=== PATIENT | female | born 1960 | race Hispanic/Latino ===

== ENCOUNTER → 2017-07-21 | Outpatient (CLI) | payer BC ==
--- NOTE | 2017-07-21 17:42 | Diagnostic Imaging Report ---
EXAM: Transabdominal Pelvic Ultrasound INDICATION: \S\PELVIC AND PERINEAL PAIN COMPARISON: None TECHNIQUE: Grayscale transverse and sagittal transabdominal images were obtained of the pelvis. CLINICAL HISTORY: 57 year old A0; last menstrual period: 10 years ago. FINDINGS: Uterus Orientation: Normal Size: 6.5 x 4.3 x 5.4 cm, Normal Mass: None Endometrium: Not visualized. Right ovary: Not visualized. Left ovary: Not visualized. Adnexa: Normal Cul-de-sac: No free fluid IMPRESSION: Limited transabdominal pelvic ultrasound. Uterus is grossly unremarkable. Ovaries are not visualized, limiting evaluation. Signed by: Dr. Ortega Perkins MD on 07/21/2017 5:38 PM
== END ==
LOC: MAMMO 15:19
PROVIDERS: ATTEND Obstetrics & Gynecology
DX: Z12.31 Encounter for screening mammogram for malignant neoplasm of breast (principal); R10.2 Pelvic and perineal pain
CPT/HCPCS: 76856; G0202

== ENCOUNTER → 2018-11-27 | Outpatient (CLI) | payer BC | LOC: MAMMO 08:59 | PROVIDERS: ATTEND Family Medicine | DX: Z12.31 Encounter for screening mammogram for malignant neoplasm of breast (principal) | CPT/HCPCS: 77067 ==

== ENCOUNTER → 2019-01-21 | Outpatient (CLI) | payer BC ==
--- NOTE | 2019-01-22 08:32 | Diagnostic Imaging Report ---
#[id number] - USBRELIMLT ULTRASOUND OF THE LEFT BREAST : 01/21/2019 CLINICAL: Routine screening. Comparison is made to exams dated: 01/21/2019 mammogram and 11/27/2018 mammogram - [facility]. Real-time ultrasound was performed on the left breast. There is a benign 1 cm oval cyst in the left breast at 3 o'clock posterior depth. This oval cyst is anechoic. This correlates with mammography findings. Additional subcentometer cyst is noted in the same area. IMPRESSION: BENIGN There is no sonographic evidence of malignancy. The 1 cm oval cyst in the left breast is benign. A 1 year screening mammogram is recommended. KWASI GOVEA M.D. ct/:01/21/2019 15:16:18 Engineering Design Supervisor: Matilde COOK(R)(M), [facility] letter sent: Normal Exam Ultrasound BI-RADS: 2 Benign
--- NOTE | 2019-01-22 08:32 | Diagnostic Imaging Report ---
#[id number] - MGDXLT #UNILATERAL LEFT DIGITAL DIAGNOSTIC MAMMOGRAM WITH CAD: 01/21/2019 Comparison is made to exams dated: 11/27/2018 mammogram and 07/21/2017 mammogram - [facility]. Current study contains 4 films. The tissue of the left breast is heterogeneously dense. This may lower the sensitivity of mammography. Current study was also evaluated with a Computer Aided Detection (CAD) system. There is a benign 1 cm oval cyst in the left breast at 3 o'clock posterior depth. This is seen in additional views. This correlates with ultrasound findings. No other significant masses or calcifications are seen in the breast. IMPRESSION: BENIGN See the report for ultrasound performed the same day for additional details. There is no mammographic evidence of malignancy. A 1 year screening mammogram is recommended. The patient will be notified by letter of the results. KWASI GOVEA M.D. ct/:01/21/2019 15:14:49 Electric Pile Driver Operator: Matilde COOK(R)(M), [facility] letter sent: Normal Exam Mammogram BI-RADS: 2 Benign
== END ==
LOC: MAMMO 14:03
PROVIDERS: ATTEND Family Medicine
DX: N63.20 Unspecified lump in the left breast, unspecified quadrant (principal)

== ENCOUNTER → 2020-05-30 | Outpatient (CLI) | payer BC | LOC: MAMMO 15:12 | PROVIDERS: ATTEND Family Medicine | DX: Z12.31 Encounter for screening mammogram for malignant neoplasm of breast (principal) | CPT/HCPCS: 77067 ==

== ENCOUNTER → 2020-08-07 | Outpatient (CLI) | payer BC | LOC: US 13:21 | PROVIDERS: ATTEND Obstetrics & Gynecology | DX: R10.2 Pelvic and perineal pain (principal) | CPT/HCPCS: 76830 ==

== ENCOUNTER → 2021-07-26 | Outpatient (CLI) | payer BC | LOC: MAMMO 15:16 | PROVIDERS: ATTEND Obstetrics & Gynecology | DX: Z12.31 Encounter for screening mammogram for malignant neoplasm of breast (principal) | CPT/HCPCS: 77067 ==